=== PATIENT | male | born 1995 | race Caucasian/White ===

== ENCOUNTER 2017-05-10 15:39 | Emergency (ER) | payer OTHER ==
[~2017-05-10] VITALS: Ht 188 cm; Wt 142.5 kg
[2017-05-10 15:45] VITALS: TEMP 36.8; Ht 188 cm; Wt 142.5 kg
[2017-05-10] MEDS ORDERED: IBUPROFEN 600 MG TAB PO STA (15:56)
[2017-05-10] MEDS ORDERED: OXYCODONE HCL IR 5 MG TAB (IMMEDIATE RELEASE) PO STA (15:56)
--- NOTE | 2017-05-10 16:28 | DIAGNOSTIC IMAGING REPORT ---
L HIP-LOWER EXTREMITY WITHOUT HISTORY: 22 years-old Male L hip pain acute left-sided head pain COMPARISON: None available TECHNIQUE: Multiple axial CT images of the left hip were obtained without the use of IV contrast. Coronal and sagittal reformatted images were obtained from the axial data set and were submitted for review. A dose lowering technique was used consistent with the principals of [place]. FINDINGS: The imaged pelvis appears intact. 6 mm sclerotic focus of the left superior pubic ramus suggests bone island. There is moderate joint space narrowing with subchondral sclerosis, subcortical cystic changes and marginal spurring about the left femoral acetabular joint. Additionally, there is minimal linear sclerosis of the superior articular femoral head, image 28 of series 200 with mild adjacent flattening of the articular surface, possibly reflecting avascular necrosis. No intra-articular loose body identified. No fracture of the imaged left femur. Mild to moderate degenerative changes of the pubic symphysis. There is mild urinary bladder distention. No pathologic adenopathy. Soft tissues are within normal limits. No evidence of bursitis. Minimal stranding adjacent to the gluteal insertion site about the greater trochanter suggests enthesitis. IMPRESSION: 1. No acute fracture or dislocation. 2. Moderate joint space narrowing with subchondral cystic changes and marginal spurring about the left femoral acetabular joint. Minimal linear sclerosis of the superior articular femoral head is noted with minimal articular flattening. These findings suggest subchondral sclerosis from degenerative changes with mild avascular necrosis felt to be less likely. 3. Mild enthesitis about the gluteal insertion site at the greater trochanter. The above report was generated using voice recognition software. It may contain grammatical, syntax or spelling errors. Electronically signed by: Erasmo Saenz M.D. 05/10/2017 4:27 PM Dictated Date/Time: 05/10/2017 4:20 PM
[2017-05-10] MEDS ORDERED: OXYC1TAB3 PO (16:50)
[2017-05-10] MEDS ORDERED: OXYCODONE IR HOME PACK PO ONE ×2 (17:00→21:21)
[2017-05-10] MEDS ORDERED: MoRPHine SULFATE 10 MG/ML CARP/VIAL IM STA (17:00)
[2017-05-10] MEDS ORDERED: ONDANSETRON 4MG OD TAB PO STA (17:05)
[2017-05-10] MEDS ORDERED: KETOROLAC TROMETHAMINE 60 MG/2 ML VIAL IM STA (17:05)
[2017-05-10] MEDS ORDERED: MoRPHine SULFATE 4 MG/ML 1 ML CARP\\VIAL IV STA (18:05)
[2017-05-10] MEDS ORDERED: HYDROmorphone INJ 0.5 MG/0.5 ML SYR IV STA (19:10)
--- NOTE | 2017-05-10 21:11 | EMERGENCY ROOM VISIT NOTE ---
History First contact with patient: 15:44 Chief Complaint: HIP PAIN Stated Complaint: HIP PAIN, CAN'T MOVE History of Present Illness The patient is a 22 year old male who presents to the Emergency Room with complaints of severe left hip pain. The patient reports that he initially injured the hip last fall while hunting. He reports stepping in a hole and twisting the hip. The patient did not seek further evaluation at that time. He reports that the pain did get better, but was intermittent since that injury. Today he went back to work on a golf [place], and has been doing a lot of walking and bending over. At the end of his shift, he reports severe pain with ambulation and weightbearing. He describes any pain extending into the buttock or lower back. He denies paresthesias or numbness of the left lower extremity. He currently rates his discomfort a 9 out of 10. The patient has seen [facility] in the past for Stefanie-Schlatter disease. Review of Systems 10 system review was performed and was negative except for pertinent positives and negatives as indicated in history of present illness Past Medical/Surgical History Medical Problems: (1) Gentry-Schlatter's disease of both knees Surgical Problems: (1) History of tonsillectomy and adenoidectomy (2) No history of previous surgery Family History Unremarkable Social History Smoking Status: Never Smoker Alcohol Use: none Marital Status: single Housing Status: lives with family Occupation Status: employed Current/Historical Medications Scheduled PRN Oxycodone Ir (Roxicodone Ir), 1-2 TAB PO Q4H PRN for Pain Physical Exam Vital Signs Date Time Temp Pulse Resp B/P (MAP) Pulse Ox O2 Delivery O2 Flow Rate FiO2 05/10/17 20:09 112 20 126/67 96 Room Air 05/10/17 17:34 109 18 127/87 96 Room Air 05/10/17 15:45 36.8 123 18 134/60 97 Room Air Physical Exam CONSTITUTIONAL: Healthy and well nourished. Alert and oriented X 3 with positive affect. Patient appears in moderate severe discomfort. HEENT: Normocephalic, atraumatic. Pupils equal, round and reactive. NECK: Full active range of motion without discomfort. RESPIRATORY: Clear to auscultation bilaterally with no wheezing, crackles, rhonchi or stridor. CARDIOVASCULAR: Regular rate and rhythm with no murmurs, rubs or gallops. GASTROINTESTINAL: Bowel sounds present in all quadrants. Soft and nontender to palpation. MUSCULOSKELETAL: Examination shows worsening pain with logroll. The patient has no tenderness to palpation through the lower lumbar spine, paraspinous muscles or SI joint. Pedal pulses are intact. INTEGUMENTARY: No rash or other significant dermatologic conditions noted. NEUROLOGIC: Left foot and toes are sensory intact. Medical Decision & Procedures ER Provider Diagnostic Interpretation: Noncontrast CT of the left hip shows moderate degenerative changes without any obvious fractures or dislocation. Radiologist report is as follows: L HIP-LOWER EXTREMITY WITHOUT HISTORY: 22 years-old Male L hip pain acute left-sided head pain COMPARISON: None available TECHNIQUE: Multiple axial CT images of the left hip were obtained without the use of IV contrast. Coronal and sagittal reformatted images were obtained from the axial data set and were submitted for review. A dose lowering technique was used consistent with the principals of [place]. FINDINGS: The imaged pelvis appears intact. 6 mm sclerotic focus of the left superior pubic ramus suggests bone island. There is moderate joint space narrowing with subchondral sclerosis, subcortical cystic changes and marginal spurring about the left femoral acetabular joint. Additionally, there is minimal linear sclerosis of the superior articular femoral head, image 28 of series 200 with mild adjacent flattening of the articular surface, possibly reflecting avascular necrosis. No intra-articular loose body identified. No fracture of the imaged left femur. Mild to moderate degenerative changes of the pubic symphysis. There is mild urinary bladder distention. No pathologic adenopathy. Soft tissues are within normal limits. No evidence of bursitis. Minimal stranding adjacent to the gluteal insertion site about the greater trochanter suggests enthesitis. IMPRESSION: 1. No acute fracture or dislocation. 2. Moderate joint space narrowing with subchondral cystic changes and marginal spurring about the left femoral acetabular joint. Minimal linear sclerosis of the superior articular femoral head is noted with minimal articular flattening. These findings suggest subchondral sclerosis from degenerative changes with mild avascular necrosis felt to be less likely. 3. Mild enthesitis about the gluteal insertion site at the greater trochanter. Medications Administered Medications (Trade) Dose Ordered Sig/Anahi Route Start Time Stop Time Status Last Admin Dose Admin Ibuprofen (Motrin Tab) 600 mg NOW STAT PO 05/10/17 15:56 05/10/17 15:58 DC 05/10/17 16:03 600 MG Oxycodone HCl (Roxicodone Immediate Rel Tab) 5 mg NOW STAT PO 05/10/17 15:56 05/10/17 15:58 DC 05/10/17 16:03 5 MG Ketorolac Tromethamine (Toradol Inj) 60 mg NOW STAT IM 05/10/17 17:05 05/10/17 17:07 DC 05/10/17 17:10 60 MG Ondansetron HCl (Zofran Odt) 4 mg NOW STAT PO 05/10/17 17:05 05/10/17 17:07 DC 05/10/17 17:09 4 MG Morphine Sulfate (MoRPHine SULFATE INJ) 4 mg NOW STAT IV 05/10/17 18:05 05/10/17 18:07 DC 05/10/17 18:11 4 MG Hydromorphone HCl (Dilaudid Inj) 0.5 mg NOW STAT IV 05/10/17 19:10 05/10/17 19:11 DC 05/10/17 20:07 0.5 MG ED Course Patient history and physical exam were performed. Nurse's notes were reviewed. Vital signs were reviewed and were normal. The patient was administered ibuprofen and OxyIR for pain. Noncontrast CT of the left hip shows moderate degenerative changes without any obvious fractures. At this point, I began to ask further questions regarding family history, and the mother reports that she was diagnosed with rheumatoid arthritis in her early 20s. In addition to providing contact information for [facility], who the patient has seen in the past, I did suggest that the patient also be seen by his family doctor for rheumatology referral. When the patient tried to ambulate after workup was complete, he was still having significant problems with pain. I then placed an order for IM Phenergan and Zofran. Before this medication could even be administered, the patient then started to feel nauseated, diaphoretic and dizzy from the OxyIR that was previously administered. At this point, I suggested IV access for IV hydration and additional pain titration, and both the patient and mother were in agreement. IV access was established. The patient was administered a normal saline 500 cc bolus, along with morphine 4 mg IVP. Approximately 30 minutes later, the patient was reassessed and was still having noticeable pain, although he did have improvement of his pain to a 6 out of 10. He was unable to ambulate without significant discomfort. He was administered Dilaudid 0.5 mg IVP which further reduce his pain to a 3 out of 10. The patient was then thirsty and chugged some water, and became nauseated. The patient refused any further analgesics or antiemetics. He was then trial ambulated with success. The patient was provided a home pack and prescription for OxyIR 5 mg. The patient was fitted and dispensed crutches, and encouraged to follow-up with orthopedics for further reevaluation and management. Both the patient and mother were happy with plan of care, and voiced understanding of all discharge instructions. Medical Decision [place] Drug Monitoring Program Search Results: patient reviewed within database, no issues identified Medication Reconcilliation Current Medication List: was personally reviewed by me Blood Pressure Screening Patient's blood pressure: Normal blood pressure Impression Primary Impression: Left hip pain Departure Information Prescriptions Oxycodone Ir (Roxicodone Ir) 5 Mg Tab 1-2 TAB PO Q4H Y for Pain, #15 TAB For Initial Treatment Prov: Brandon Amador PA 05/10/17 Patient Instructions My [facility]
[2017-05-10] MEDS ORDERED: ONDANSETRON HOME PACK 4MG OD TAB ONE (21:23)
[2017-05-10 21:44] VITALS: BP 116/73; PULSE 99; O2SAT 98
== END 2017-05-10 21:45 | disposition home or self-care (01) ==
LOC: C.EDB 15:40 → C.EDD 21:45
DX: M25.552 Pain in left hip (principal); M92.51 Juvenile osteochondrosis of proximal tibia; M92.52 Juvenile osteochondrosis of tibia tubercle; M06.9 Rheumatoid arthritis, unspecified

== ENCOUNTER → 2017-06-01 | Outpatient (CLI) | payer OTHER ==
[~2017-06-01] MED LIST: OXYC1TAB3 PO
--- NOTE | 2017-06-01 12:55 | DIAGNOSTIC IMAGING REPORT ---
Giancarlo HENSLEY SHLDR,HIP,KNEE CLINICAL HISTORY: 22 years-old Male presenting with LEFT HIP PAIN. COMPARISON: CT from 05/10/2017. PROCEDURE: The risks, benefits, and alternatives to the procedure were discussed with the patient. Written informed consent was obtained. The patient was placed supine on the fluoroscopy table, and a left hip aspiration/injection was performed under fluoroscopic guidance. The area was prepped and draped in the usual sterile fashion. The skin and soft tissues anesthetized with local 1% lidocaine. The left hip joint was accessed utilizing a 20-gauge needle. Initially, aspiration of the hip joint was attempted. No fluid was returned. Therefore, 1 mL of sterile saline was injected into the joint space. Again, aspiration was attempted without fluid return. To confirm intra-articular location, approximately 1 mL of Optiray 300 was injected into the joint space under fluoroscopic guidance. Appropriate positioning was observed. The procedure was well tolerated without immediate complication. Fluoroscopy dosage (mGy): Not available. Fluoroscopy time: 13 seconds. Number of fluoroscopic spot images: 0. IMPRESSION: Successful attempted left hip aspiration under fluoroscopic guidance. However, the lack of fluid return precluded collection of a sample to be sent for analysis. Intra-articular location was confirmed. Electronically signed by: Rebel Milan M.D. 06/01/2017 12:54 PM Dictated Date/Time: 06/01/2017 12:51 PM
== END | disposition home or self-care (01) ==
LOC: C.RADBC 11:04
PROVIDERS: ATTEND Orthopaedic Surgery
DX: M25.552 Pain in left hip (principal)